=== PATIENT | female | born 1955 | race Caucasian/White ===

== ENCOUNTER 2025-05-30 19:40 | Emergency (ER) | payer MEDICARE, MEDICAID ==
[~2025-05-30] VITALS: Ht 157.5 cm; Wt 95.5 kg
[2025-05-30 19:45] VITALS: BP 126/88; PULSE 106; RESP 18; TEMP 98.1; O2SAT 98
[2025-05-31 00:58] LABS: ALCOHOL, URINE DRUG SCREEN NEGATIVE (NEGATIVE); AMPHET/METH SCREEN,URINE NEGATIVE (NEGATIVE); APPEARANCE,URINE HAZY (CLEAR); BARBITURATE SCREEN, URINE NEGATIVE (NEGATIVE); CANNABINOID SCREEN,URINE NEGATIVE (NEGATIVE); COCAINE SCREEN,URINE NEGATIVE (NEGATIVE); GLUCOSE, URINE (UA) NEGATIVE (NEGATIVE); LEUKOCYTE ESTERASE ,URINE TRACE (NEGATIVE); METHADONE SCREEN, URINE NEGATIVE (NEGATIVE); NITRATE,URINE NEGATIVE (NEGATIVE); OCCULT BLOOD,URINE TRACE (NEGATIVE); PH,URINE DRUG SCREEN 5.5 (5.0-8.0); SPECIFIC GRAVITIY, URINE 1.026 (1.003-1.030)
[2025-05-31 01:05] LABS: SQUAMOUS EPITHELIAL CELL,UR Few /LPF (None Seen)
== END 2025-05-31 02:09 | disposition home or self-care (01) ==
LOC: EDBD 19:55 → EMS 19:55
DX: R53.1 Weakness (principal); Z59.819 Housing instability, housed unspecified; Z02.2 Encounter for examination for admission to residential institution; Z79.899 Other long term (current) drug therapy
CPT/HCPCS: 80307; 81001; 93005; 99284

== ENCOUNTER 2025-06-07 15:07 | Emergency (ER) | payer MEDICAID, MEDICARE | END 2025-06-07 17:46 | disposition left against medical advice (07) | LOC: EMS 15:08 → EDH 17:18 → UNDOADMIN 17:18 → EDH 06-08 02:56 → 5S 06-08 02:56 | DX: R26.89 Other abnormalities of gait and mobility (principal) | CPT/HCPCS: 99283; 99285; G0378 ==